=== PATIENT | male | born 1955 | race Caucasian/White ===

== ENCOUNTER 2021-03-18 22:21 | Emergency (ER) | payer OTHER ==
[2021-03-18 23:23] LABS: BASOPHIL 0.6 % (0-2); EOSINOPHIL 2.1 % (0-5); HCT 28.4 % (42.0-52.0); HGB 9.3 g/dl (13.2-18.0); MCH 30.7 pg (25.0-31.0); MCHC 32.7 g/dL (32.0-36.0); MCV 93.7 fL (78.0-100.0); MPV 9.5 fL (6.0-9.5); NEUTROPHIL 44.9 % (41-80); NRBC 0; PLT 251 K/uL (150-400); RBC 3.03 M/uL (4.70-6.00); WBC 4.7 K/uL (4.0-10.5)
[2021-03-18 23:32] LABS: INR 0.99 (0.9-1.2); PROTHROMBIN TIME 12.4 SECONDS (11.4-13.6)
[2021-03-18 23:34] LABS: D-DIMER 0.67 ug/mLFEU (0.00-0.41)
[2021-03-18 23:37] LABS: ALBUMIN 3.3 g/dL (3.4-5.0); BILIRUBIN - TOTAL 0.2 mg/dL (0.2-1.0); BUN/CREAT RATIO (CALC) 19.1 RATIO; CREATININE 0.89 mg/dL (0.67-1.17); GLOBULIN (CALCULATION) 3.6 g/dL; POTASSIUM 4.5 mmol/L (3.5-5.1); TOTAL PROTEIN 6.9 g/dL (6.4-8.2)
[2021-03-18 23:43] LABS: PRO-BNP 765 pg/mL (<125)
== END 2021-03-19 08:15 | disposition home or self-care (01) ==
LOC: FER 22:21
PROVIDERS: Emergency Medicine
DX: R07.89 Other chest pain (principal); R06.02 Shortness of breath; R11.0 Nausea; I10 Essential (primary) hypertension; Z88.5 Allergy status to narcotic agent; Z79.899 Other long term (current) drug therapy
CPT/HCPCS: 36415; 70450; 71045; 71275; 80053; 83880; 84484; 85025; 85379; 85610; 93005; Q9967